=== PATIENT | female | born 2000 | race Caucasian/White ===

== ENCOUNTER 2019-07-08 20:37 | Emergency (ER) | payer MEDICAID, SELFPAY ==
[2019-07-08 20:58] VITALS: BP 130/68; PULSE 74; RESP 14; TEMP 37.2; O2SAT 98; BMI 21.0
[2019-07-08 21:58] LABS: Basophils % 0.3 %; Eosinophils # 0.1 10^3/uL (0.0-0.8); Hematocrit 38.6 % (37.0-47.0); Hemoglobin 12.6 g/dL (11.5-15.3); Lymphocytes % 17.2 %; Mean Corpuscular HGB Conc 32.6 g/dL (30.0-36.0); Mean Corpuscular Hemoglobin 30.6 pg (28.0-34.0); Mean Corpuscular Volume 93.7 fL (81-99); Mean Platelet Volume 11.1 fL (7.4-10.4); Monocytes # 0.7 10^3/uL (0.2-0.9); Monocytes % 5.8 %; Neutrophils # 8.8 10^3/uL (1.8-7.7); Neutrophils % 75.4 %; Nucleated Red Blood Cells % 0 %; Platelet Count 301 10^3/cmm (130-400); Red Blood Count 4.12 10^6/uL (4.1-5.3); White Blood Count 11.6 10^3/uL (4.0-10.0)
[2019-07-08 22:25] LABS: Alanine Aminotransferase 13 U/L (0-33); Albumin Level 4.9 g/dL (3.5-5.2); Alkaline Phosphatase 40 IU/L (35-105); Anion Gap 16.6 (5-19); Aspartate Amino Transferase 18 U/L (0-32); Blood Urea Nitrogen 7 mg/dL (6-20); Calcium 9.1 mg/dL (8.5-10.5); Carbon Dioxide 25 mmol/L (22-29); Chloride 99 mmol/L (98-107); Globulin 2.8 g/dL (1.3-4.6); Glomerular Filtration Rate 126.2 mL/min (90-130); Glucose 101 mg/dL (65-115); Osmolality Calculated 280 mOsm/kg (285-295); Potassium 3.6 mmol/L (3.5-5.1); Sodium 137 mmol/L (136-145); Total Bilirubin 0.3 mg/dL (0.15-1.2); Total Protein 7.7 g/dL (6.6-8.7)
--- NOTE | 2019-07-08 22:26 | USR_ITS ---
PROCEDURE INFORMATION: Exam: US First Trimester, Transabdominal and US , Transvaginal Exam date and time: 07/08/2019 11:40 PM Age: 19 years old Clinical indication: Lmp or gestational age (in weeks): 7 w 1d; Other: Vag bleed; ; Additional info: Bleeding TECHNIQUE: Imaging protocol: Real-time transabdominal obstetrical ultrasound of the maternal pelvis and a first trimester , less than 14 weeks 0 days, with image documentation. Transvaginal imaging was used for better evaluation of the fetus and adnexa. COMPARISON: [place] [id number] 05/31/2018 7:47 AM FINDINGS: Gestation: Single intrauterine gestation. 1.2 x 1.1 x 1.7 cm inferior subchorionic hemorrhage. Heart rate: 150 bpm. Amniotic fluid: Amniotic fluid is normal for gestational age. BIOMETRY: [place]-Rump length: [place]-rump length 1.05 cm Estimated due date: Estimated due date 02/23/2020. MATERNAL: Uterus: Unremarkable. Cervix: Unremarkable. Right adnexa: The right ovary is normal. Left adnexa: The left ovary is normal. Intraperitoneal: No intraperitoneal free fluid. US/US OB <= 14 weeks fetus [id number] IMPRESSION: 1. Single living intrauterine gestation estimated at 7 weeks 1 day. 2. Small subchorionic hemorrhage.
--- NOTE | 2019-07-08 22:27 | W.ED.PREGNAN ---
HPI - General: Chief complaint: Vaginal Bleeding Stated complaint: cramping/bleeding 7 weeks preg Time Seen by Provider: 07/08/19 22:20 History of Present Illness: HPI Narrative: Patient states she is about 7 weeks that she started cramping about 2 hours ago a had just bleeding at that time is on a blood since still has some cramps going on. Patient says she has had 1 miscarriage at 7 weeks. That was about a year ago has had 3+ test and has seen Dr. Brito for this . Denies any other ongoing medical symptoms at this time MD Complaint: vaginal bleeding Onset (ago): hour(s) Pain Consistency: now resolved Severity: mild Quality: Cramping Vaginal bleeding: clots Date of Last Menstrual Period: 04/17/19 Patient : Yes OB History - Current : no complications and other OB History - Previous Pregnancies: miscarriage care: other Associated symptoms: Reports no associated symptoms; Deny abdominal pain, headache(s), nausea or vomiting Review of Systems Const: Denies: fever, chills or body aches Eyes: Denies: change in vision or blurry vision ENMT: Denies: throat pain or nasal congestion Card: Denies: chest pain or shortness of breath on exertion Resp: Denies: shortness of breath, productive cough or non-productive cough GI: Denies: abdominal pain, nausea or vomiting : Reports: vaginal bleeding (Has now stopped does have cramping) Musc: Denies: extremity pain Skin/Breast: Denies: rash Neuro: Denies: headache Psych: Denies: anxiety or depression [place]/Lymph: Denies: easy bruising PFSH ED PFSH: Social History Smoking and tobacco status: never smoked Female Reproductive History: Date of last menstrual period: 04/17/19 Physical Exam Const: COMMON NORMALS: no apparent distress, average body habitus and oriented x3 HENMT: COMMON NORMALS: normocephalic HEAD & SCALP: normal to inspection and normocephalic FACE & SINUS: normal facial exam Eye: COMMON NORMALS: conjunctivae normal GENERAL EYE: normal appearance of both eyes CONJUNCTIVA: Yes conjunctivae normal Neck/C-Spine: COMMON NORMALS: no JVD Chest: COMMONS NORMALS: inspection of chest normal Resp: COMMON NORMALS: normal respiratory effort and clear to auscultation bilaterally AUSCULTATION: clear to auscultation bilaterally Cardio: COMMON NORMALS: no JVD, regular rate and regular rhythm RATE: regular rate RHYTHM: regular rhythm GI: COMMON NORMALS: normal to inspection, nondistended, normoactive bowel sounds Extremity: COMMON NORMALS: normal to inspection and full ROM Neuro: COMMON NORMALS: oriented x3 Course Vital Signs: Vital signs: Vital Signs Temperature 99.0 F 07/08/19 20:58 Pulse Rate 74 07/08/19 20:58 Respiratory Rate 14 07/08/19 20:58 Blood Pressure 130/68 07/08/19 20:58 Pulse Oximetry 98 07/08/19 20:58 MDM - OB/Uterine Contractions Lab Data: Labs: Lab Results 07/08/19 07/08/19 Range/Units 21:29 21:29 WBC 11.6 H (4.0-10.0) 10^3/ uL RBC 4.12 (4.1-5.3) 10^6/u L Hgb 12.6 (11.5-15.3) g/dL Hct 38.6 (37.0-47.0) % MCV 93.7 (81-99) fL MCH 30.6 (28.0-34.0) pg MCHC 32.6 (30.0-36.0) g/dL RDW 12.0 L (12.1-15.1) % Plt Count 301 (130-400) 10^3/c mm MPV 11.1 H (7.4-10.4) fL Neut % (Auto) 75.4 % Lymph % (Auto) 17.2 % Morgan % (Auto) 5.8 % Eos % (Auto) 1.0 % Baso % (Auto) 0.3 % Neut # (Auto) 8.8 H (1.8-7.7) 10^3/u L Lymph # (Auto) 2.0 (0.8-4.8) 10^3/u L Morgan # (Auto) 0.7 (0.2-0.9) 10^3/u L Eos # (Auto) 0.1 (0.0-0.8) 10^3/u L Baso # (Auto) 0.0 (0.0-0.1) 10^3/u L Nucleated RBC % (a uto) 0 % Nucleated RBCs # 0.0 /100WBC Sodium 137 (136-145) mmol/L Potassium 3.6 (3.5-5.1) mmol/L Chloride 99 (98-107) mmol/L Carbon Dioxide 25 (22-29) mmol/L Anion Gap 16.6 (5-19) BUN 7 (6-20) mg/dL Creatinine 0.6 (0.5-0.9) mg/dL GFR Calculation 126.2 (90-130) mL/min Glucose 101 (65-115) mg/dL Calculated Osmolal ity 280 L (285-295) mOsm/k g Calcium 9.1 (8.5-10.5) mg/dL Total Bilirubin 0.3 (0.15-1.2) mg/dL AST 18 (0-32) U/L ALT 13 (0-33) U/L Alkaline Phosphata se 40 (35-105) IU/L Total Protein 7.7 (6.6-8.7) g/dL Albumin 4.9 (3.5-5.2) g/dL Globulin 2.8 (1.3-4.6) g/dL Ser , [place] [address].00 mIU/mL Discharge Plan Discharge Condition: Good Coding Level of Care Code ED [employer]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
[2019-07-08] MEDS: ondansetron 4 MG Tablet 8 MG PO (23:15)
[2019-07-09 00:41] LABS: Add Urine Microscopic? YES; Bilirubin Urine Neg (NEGATIVE); Blood Urine 2+ (Negative); Glucose Urine UA Norm (Normal); Ketones Urine 1+ (Negative); Leukocyte Esterase Urine Negative (Negative); Nitrate Urine Negative (Negative); Protein Urine Neg (Negative); Urine Appearance Clear (CLEAR); Urine Color Yellow (Yellow); Urobilinogen Urine Norm (Negative); pH Urine 6 (5-7)
[2019-07-09 00:42] LABS: RBC Urine 0-4 /hpf (0-2)
[2019-07-09 00:43] LABS: Add Urine Culture? No; Squamous Epithelial Cell Urine 0-4 (0-5)
[2019-07-09 01:10] VITALS: BP 95/54; PULSE 76; RESP 16; O2SAT 98
== END 2019-07-09 01:11 | disposition home or self-care (01) ==
PROVIDERS: Emergency Provider Nurse Practitioner Family; PCP Family Medicine
DX: O26.891 Other specified pregnancy related conditions, first trimester (principal); N93.9 Abnormal uterine and vaginal bleeding, unspecified; Z3A.01 Less than 8 weeks gestation of pregnancy
CPT/HCPCS: 12345; 36415; 76801; 80053; 81001; 84702; 85025; 86900; 99282; 99283; Q0162

== ENCOUNTER 2019-09-29 11:43 | Outpatient (CLI) | payer MEDICAID, SELFPAY ==
[2019-09-29] VITALS (27 sets, daily range): BP systolic 0–109; BP diastolic 0–60; PULSE 59–82; RESP 16–18; TEMP 36.9–37.1; BMI 23.0
[2019-09-29] MEDS: fentaNYL 50 mcg/mL INJ 2mL IV ×5 (12:26→17:48)
[2019-09-29] MEDS: dextrose 5%-lactated ringers 1,000 ML 125 ML IV (12:26)
[2019-09-29 12:57] LABS: Basophils % 0.2 %; Eosinophils % 0.3 %; Hematocrit 37.1 % (37.0-47.0); Hemoglobin 12.1 g/dL (11.5-15.3); Lymphocytes # 1.2 10^3/uL (0.8-4.8); Mean Corpuscular HGB Conc 32.6 g/dL (30.0-36.0); Mean Corpuscular Hemoglobin 30.3 pg (28.0-34.0); Mean Corpuscular Volume 92.8 fL (81-99); Mean Platelet Volume 10.7 fL (7.4-10.4); Monocytes # 0.6 10^3/uL (0.2-0.9); Neutrophils # 12.51 10^3/uL (1.8-7.7); Neutrophils % 87.2 %; Nucleated Red Blood Cells % 0 %; Platelet Count 259 10^3/cmm (130-400); Red Cell Distribution Width 12.1 % (12.1-15.1); White Blood Count 14.4 10^3/uL (4.0-10.0)
[2019-09-29] MEDS: oxytocin 30 UNIT/500 ML BAG IV (16:00)
[2019-09-29] MEDS: ondansetron 2 mg/ML SDV 2 mL 4 MG IVP (17:26)
--- NOTE | 2019-09-29 18:40 | P.SS_ITS ---
Short Stay Summary Providers Date of Admit/Discharge: 10/06/19 Attending Provider: Dae Cook MD Primary Care Provider: Arleen Brito MD Chief Complaint: labor HPI History of Present Illness Nita Rodriguez is a 19 year old 2 para 0-0-1-0 female at 19 weeks gestational age who presented to my office today for a routine anatomic survey. During the survey, the registered diet technician noted that the amniotic fluid was extending into the vaginal area, and that the cervix was dilated. She notified me about this immediately, and when I checked her I found that the amniotic fluid was bulging down to a +2 station, and I was unable to reach around the amniotic sac adequately to feel if the cervix was completely dilated. At that point I notified the patient that she did not have a viable , and that she need to be admitted to the hospital for an imminent delivery of the baby. She returned home to let her know, they came to the hospital for definitive care. Review of Systems General: Reports: 10 or more systems reviewed and unremarkable except in HPI and below Const: Denies: fever(s) Card: Denies: chest pain or irregular heart rhythm Resp: Denies: dyspnea : Reports: vaginal bleeding Home Meds/Allergies Home Medications and Allergies Home Medications Medication Instructions Recorded Confirmed Type PNV cmb#95-ferrous fumarate-FA 1 tab PO DAILY 09/29/19 09/29/19 History [] Allergies Allergy/AdvReac Type Severity Reaction Status Date / Time Penicillins Allergy Unknown Verified 09/29/19 15:20 PFSH Acute PFSH: Social History Smoking and tobacco status: never smoked Female Reproductive History: Date of last menstrual period: 04/17/19 : 2 Other female reproductive history: The patient's previous was a blighted ovum. She had had some bleeding during this as well as subchorionic hemorrhage. Vitals/I&O/Wt Last Vital Signs Temp 98.7 F 09/29/19 12:01 Pulse 62 09/29/19 18:12 Resp 16 09/29/19 17:48 BP 108/52 09/29/19 18:12 07/30/20 07/30/20 07/30/20 06:59 14:59 22:59 Intake Total 491.00 / 491.00 Balance 491.00 / 491.00 Weight last 48 hrs Weight 118 lb Physical Exam Const: COMMON NORMALS: patient oriented x3 and alert HENMT: COMMON NORMALS: moist oral mucous membranes HEAD & SCALP: normal to inspection Chest: COMMONS NORMALS: normal inspection of the chest Resp: COMMON NORMALS: clear to auscultation bilaterally AUSCULTATION: clear to auscultation bilaterally Cardio: COMMON NORMALS: regular rate and regular rhythm RATE: regular rate RHYTHM: regular rhythm GI: INSPECTION: Yes normal to inspection and Yes other (Gravid) : MANUAL OB EXAM: other (The patient was noted to have a bulging amniotic sac that was to a +2 to +3 station with parts felt within the sac.) Extremity: COMMON NORMALS: normal to inspection GENERAL: Yes edema (Trace) Neuro: COMMON NORMALS: patient oriented x3, moves all extremities and no sensory deficits noted SENSORIUM/ORIENTATION: Yes alert Psych: COMMON NORMALS: mental status grossly normal Skin: COMMON NORMALS: no rashes or lesions noted GENERAL SKIN EXAM: no rashes or lesions noted Hospital Course Hospital Course: The patient presented to the hospital with her to induce delivery of her . She is placed on tocometry. She is placed on high-dose Pitocin and was increased to 19. I performed an amniotomy. Shortly thereafter she delivered an intact normal-appearing 19-week without heart tones. The placenta was delivered without difficulty. The patient had about 50 mls of blood loss. There was no perineal damage noted. She and her held the baby for a while after the delivery of the infant. After delivery the and the placenta, the patient had mild to moderate bleeding. It resolved fairly quickly. She and her elected to go home a few hours after delivery. Diagnoses at Discharge Discharge Diagnosis (1) demise, less than 22 weeks: Status: Acute (2) Incompetent cervix during second trimester, antepartum: Status: Acute Discharge Plan Discharge Patient Disposition: Home Prescriptions: New ibuprofen 800 mg tablet 800 mg PO Q8H Qty: 30 RF: 0 No Action 28 mg iron- 800 mcg Tablet 1 tab PO DAILY RF: 0 Discharge Orders: Discharge Order (Routine); Ordered 09/29/19 Ordered By: Dae Cook Referrals: Dae Cook MD [Physician] - 4-7 days Diet: Usual diet Activity: Limit activity as instructed Activity Restrictions/Additional Instructions: Please contact [facility] ([phone]) to schedule a follow up first thing in the AM on 09/30/2019. Discharge Date/Time: 09/29/19 21:58 Attestations Medical Necessity Statement*: The patient presented to the hospital for induction and delivery of a 19-week male infant. 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
--- NOTE | 2019-09-29 21:13 | PC.NURSE ---
This nurse contacted [facility] per patients request at 2029. [facility] [employer]
[2019-09-29] MEDS: ondansetron 4 MG Tablet PO (21:48)
--- NOTE | 2019-09-29 22:57 | PC.NURSE ---
Baby to home staff at 0063. AR RN
== END 2019-09-29 21:58 | disposition home or self-care (01) ==
LOC: OPOB 11:49 → OBGYN 18:51
PROVIDERS: PCP Family Medicine; Visit Provider Family Medicine
DX: O34.32 Maternal care for cervical incompetence, second trimester (principal); O36.4XX0 Maternal care for intrauterine death, not applicable or unspecified; Z3A.22 22 weeks gestation of pregnancy
CPT/HCPCS: 12345; 36415; 59409; 85025; 96374; 96375; J2405; J3010; Q0162

== ENCOUNTER 2023-05-01 17:25 | Emergency (ER) | payer BC, MEDICAID, SELFPAY ==
[2023-05-01 17:35] VITALS: BP 148/96; PULSE 95; RESP 17; O2SAT 100; BMI 20.1
--- NOTE | 2023-05-01 17:35 | USR_ITS ---
PROCEDURE INFORMATION: Exam: US First Trimester, Transabdominal and US Duplex Artery or Vein, Ovaries, Limited Exam date and time: 05/01/2023 5:22 PM Age: 23 years old Clinical indication: Lmp or gestational age (in weeks): 8w0d; Antepartum complications; Bleeding; ; Prior surgery; Surgery date: 6+ months; Surgery type: HX of d&c; Additional info: Vaginal bleeding TECHNIQUE: Imaging protocol: Real-time transabdominal obstetrical ultrasound of the maternal pelvis and a first trimester , less than 14 weeks 0 days, with image documentation. Real-time duplex ultrasound scan of the arterial or venous flow of the ovaries with B-mode, color Doppler flow and spectral waveform analysis, limited Duplex. Duplex exam was performed to evaluate for torsion and other vascular conditions. COMPARISON: US OB limited [id number] 09/29/2019 10:29 AM FINDINGS: Gestation: Single live intrauterine with crown-rump length of approximately 1.59 cm with estimated gestational age of 8 weeks 0 days based on ultrasound. Yolk sac identified. Embryonic/ heart rate: 171 bpm Extra-embryonic membranes/Placenta: Unremarkable. No subchorionic bleed. BIOMETRY: Gestational age (AUA): 8 weeks 0 days MATERNAL: Uterus: Unremarkable. Cervix: Cervical length measures 4.5 cm. Right ovary/adnexa: Normal flow. No torsion. Normal follicles. Left ovary/adnexa: Normal flow. No torsion. Simple cysts measuring up to 3.5 cm, likely physiologic. Intraperitoneal space: Trace pelvic free fluid. US/US OB <=14 wk fetus w transvag IMPRESSION: Single live intrauterine with estimated gestational age of 8 weeks and 0 days.
--- NOTE | 2023-05-01 17:42 | ED_ITS ---
Documented by User: TOY Cook 05/01/23 20:22 HPI - 2 General: Chief complaint: Vaginal Bleeding Stated complaint: Vanginal Bleeding, 8 weeks preg Time Seen by Provider: 05/01/23 17:34 Source: patient Mode of arrival: ambulatory Limitations: no limitations History of Present Illness: Patient is a 23-year-old female G4, P0 who presents to the emergency department complaining of vaginal bleeding onset 20 minutes ago. Patient states this is her fourth , stating she has miscarriage the prior 3. She says she had a confirmatory intrauterine gestation via ultrasound last week, and is approximately 9 weeks . She denies any associated symptoms, and states that she just happened to notice a significant amount of bright red blood appear prior to arrival. She denies any lightheadedness, chest pain, dizziness, nausea vomiting, abdominal pain, or any other symptoms. MD Complaint: vaginal bleeding Onset (ago): minute(s) (20) Vaginal bleeding: heavy Patient : Yes Number of Weeks : 9 OB History - Previous Pregnancies: miscarriage (3) care: followed by OB and previous ultrasound confirms IUP Associated symptoms: Reports no associated symptoms; Deny abdominal pain, dysuria, headache(s), nausea, vaginal discharge or vomiting Related Data: : 4 Para: 0 Total number of abortions (spontaneous and elective): 3 Review of Systems 2 General: Reports: 10 or more systems reviewed and unremarkable except in HPI and below Const: Denies: fever(s), chills or fatigue Eyes: Denies: change in vision ENMT: Denies: throat pain, ear or mastoid pain or nasal discharge Card: Denies: chest pain, palpitations, swelling of feet/ankles or lightheadedness Resp: Denies: dyspnea, productive cough or wheezing GI: Denies: abdominal pain, nausea, vomiting, diarrhea or constipation : Reports: vaginal bleeding and other (); Denies: flank pain, difficulty voiding, dysuria, urinary frequency, vaginal discharge, dysmenorrhea or pelvic pain Musc: Denies: neck pain, back pain or joint pain Skin/Breast: Denies: rash Neuro: Denies: headache(s), numbness in extremities, weakness in extremities or dizziness PFSH ED 2 PFSH: Social History Smoking and tobacco/nicotine status: never used tobacco/nicotine Female Reproductive History: : 4 Physical Exam 2 Const: COMMON NORMALS: no acute distress, patient oriented x3 and no limitations GENERAL APPEARANCE: cooperative, comfortable and well developed ORIENTATION/CONSCIOUSNESS: Yes awake, Yes oriented to person, Yes oriented to place and Yes oriented to time HENMT: COMMON NORMALS: normocephalic, atraumatic and hearing grossly normal bilaterally HEAD & SCALP: normocephalic and atraumatic Eye: COMMON NORMALS: Equal, round and reactive pupils present, EOMs intact bilaterally and conjunctivae normal CONJUNCTIVA: Yes conjunctivae normal P UPIL: Yes Equal, round and reactive pupils present Neck/C-Spine: COMMON NORMALS: full ROM, supple and no JVD Resp: COMMON NORMALS: normal respiratory effort, No retractions, No use of accessory muscles and clear to auscultation bilaterally AUSCULTATION: clear to auscultation bilaterally Cardio: COMMON NORMALS: no JVD, regular rate, regular rhythm, No clicks present (Cardio), No murmurs present (Cardio) and No rub (Cardio) RATE: r egular rate RHYTHM: regular rhythm GI: COMMON NORMALS: Normal to inspection, nondistended, normoactive bowel sounds present, Soft to palpation and non-tender INSPECTION: Yes other (fundus not appreciable due to gestational age) AUSCULTATION: Yes normoactive bowel sounds PALPATION: Yes Soft to palpation : OTHER: Pelvic exam performed with trademark affixer present. Mild amount of blood present in the vaginal vault with no signs of tissue or particles of conception. Cervical os closed. No abnormal discharge noted. External exam normal. Extremity: COMMON NORMALS: normal to inspection, full ROM and capillary refill normal Neuro: COMMON NORMALS: patient oriented x3, moves all extremities, no focal motor deficits and no sensory deficits noted SENSORIUM/ORIENTATION: Yes oriented to person, Yes oriented to place and Yes oriented to time Psych: COMMON NORMALS: mental status grossly normal and Normal thought process present THOUGHT PROCESS: Normal thought process present Skin: COMMON NORMALS: no rashes or lesions noted GENERAL SKIN EXAM: no rashes or lesions noted Procedures Perimortem Number of Weeks : 9 Course 2 Vital Signs: Vital signs: Vital Signs Pulse Rate 86 05/01/23 19:06 Respiratory Rate 16 05/01/23 19:47 Blood Pressure 101/70 05/01/23 19:47 Pulse Oximetry 98 05/01/23 19:06 Oxygen Delivery Me thod Room Air 05/01/23 19:06 MDM - OB/Uterine Contractions Medical Decision Making This patient was seen and evaluated in the emergency department today for acute onset of vaginal bleeding. Patient states she is approximately 9 weeks and has a history of 3 prior miscarriages. She denied any other accompanying symptoms. Vitals on arrival were normal. Initial examination was overall. Patient was began on a liter of fluids and labs and ultrasound were ordered. Overall, labs are unremarkable and beta-hCG correlated with patient's gestational age. Transvaginal/OB ultrasound confirmed intrauterine gestation with heart tones in the 170s, as well as presence of yolk sac and approximate gestational age of 8 weeks. Due to these findings, I performed a pelvic exam to evaluate integrity of the cervical os. Pelvic examination revealed a closed cervical os without presence of tissue and a mild amount of blood in the vault. Because of these findings that I believe are consistent with a threatened miscarriage, I feel it is safe to discharge the patient home and have her follow-up with her OB as soon as possible to discuss ER visit and any further necessary workup. The patient agrees with this plan and reasons to return are discussed, including any lightheadedness or dizziness, severe abdominal pain, increased vaginal bleeding, or other concerns she may have. Patient discharged home. Lab Data 05/01/23 17:51 Radiology Impressions Obstetrics Ultrasound 05/01/23 17:35 IMPRESSION: Single live intrauterine with estimated gestational age of 8 weeks and 0 days. Laboratory Results WBC 12.26 10^3/uL (3.29-11.43) H 05/01/23 17:51 RBC 4.05 10^6/uL (3.85-5.65) 05/01/23 17:51 Hgb 12.20 g/dL (11.27-16.99) 05/01/23 17:51 Hct 37.3 % (36-47) 05/01/23 17:51 MCV 92.1 fl (85-98) 05/01/23 17:51 MCH 30.1 pg (27-33) 05/01/23 17:51 MCHC 32.7 g/dL (30-55) 05/01/23 17:51 RDW 12.1 % (12.1-15.1) 05/01/23 17:51 Plt Count 298 10^3/cmm (157-399) 05/01/23 17:51 MPV 9.9 fL (7.4-10.4) 05/01/23 17:51 Neut % (Auto) 80.7 % 05/01/23 17:51 Lymph % (Auto) 13.1 % 05/01/23 17:51 [place] % (Auto) 5.1 % 05/01/23 17:51 Eos % (Auto) 0.4 % 05/01/23 17:51 Baso % (Auto) 0.4 % 05/01/23 17:51 Neut # (Auto) 9.90 10^3/uL (1.8-7.7) H 05/01/23 17:51 Lymph # (Auto) 1.6 10^3/uL (0.8-4.8) 05/01/23 17:51 [place] # (Auto) 0.6 10^3/uL (0.2-0.9) 05/01/23 17:51 Eos # (Auto) 0.1 10^3/uL (0.0-0.8) 05/01/23 17:51 Baso # (Auto) 0.1 10^3/uL (0.0-0.1) 05/01/23 17:51 Nucleated RBC % (auto) 0 % 05/01/23 17:51 Nucleated RBCs # 0.0 /100WBC 05/01/23 17:51 Ser , Semi-Qnt 013159.00 mIU/mL 05/01/23 17:51 All radiology interpretation(s) finalized by discharge Discharge Plan Discharge Patient Disposition: Home Clinical Impression: Threatened Condition: Stable Prescriptions: No Action 28 mg iron- 800 mcg Tablet 1 tab PO DAILY Discharge Orders: Discharge ED (Routine); Ordered 05/01/23 Ordered By: Be Rodriguez Referrals: Dae Cook MD [Primary Care Provider] - Discharge Diet: Usual diet Discharge Activity: Increase activity as tolerated Patient Instructions: Threatened Miscarriage (ED) Activity Restrictions/Additional Instructions: Please follow-up with your OB to discuss ER visit and lab/tests. If you develop any lightheadedness, increased abdominal pain, significant bleeding, or any other concerning symptoms please return. Coding Level of Care Code ED Cube Cutter for Chg Fwd Documented by User: David Courtney DO 05/02/23 06:37 HPI - 2 General: Chief complaint: Vaginal Bleeding Stated complaint: Vanginal Bleeding, 8 weeks preg Time Seen by Provider: 05/01/23 17:34 PFS ED 2 PFSH: Social History Smoking and tobacco/nicotine status: never used tobacco/nicotine Course 2 Vital Signs: Vital signs: Vital Signs Pulse Rate 86 05/01/23 19:06 Respiratory Rate 16 05/01/23 19:47 Blood Pressure 101/70 05/01/23 19:47 Pulse Oximetry 98 05/01/23 19:06 Oxygen Delivery Me thod Room Air 05/01/23 19:06 MDM - OB/Uterine Contractions Medical Decision Making This patient was seen and evaluated in the emergency department today for acute onset of vaginal bleeding. Patient states she is approximately 9 weeks and has a history of 3 prior miscarriages. She denied any other accompanying symptoms. Vitals on arrival were normal. Initial examination was overall. Patient was began on a liter of fluids and labs and ultrasound were ordered. Overall, labs are unremarkable and beta-hCG correlated with patient's gestational age. Transvaginal/OB ultrasound confirmed intrauterine gestation with heart tones in the 170s, as well as presence of yolk sac and approximate gestational age of 8 weeks. Due to these findings, I performed a pelvic exam to evaluate integrity of the cervical os. Pelvic examination revealed a closed cervical os without presence of tissue and a mild amount of blood in the vault. Because of these findings that I believe are consistent with a threatened miscarriage, I feel it is safe to discharge the patient home and have her follow-up with her OB as soon as possible to discuss ER visit and any further necessary workup. The patient agrees with this plan and reasons to return are discussed, including any lightheadedness or dizziness, severe abdominal pain, increased vaginal bleeding, or other concerns she may have. Patient discharged home. Chart reviewed and patient discussed with midlevel. Agree with assessment and plan. Lab Data 05/01/23 17:51 Radiology Impressions Obstetrics Ultrasound 05/01/23 17:35 IMPRESSION: Single live intrauterine with estimated gestational age of 8 weeks and 0 days. Laboratory Results WBC 12.26 10^3/uL (3.29-11.43) H 05/01/23 17:51 RBC 4.05 10^6/uL (3.85-5.65) 05/01/23 17:51 Hgb 12.20 g/dL (11.27-16.99) 05/01/23 17:51 Hct 37.3 % (36-47) 05/01/23 17:51 MCV 92.1 fl (85-98) 05/01/23 17:51 MCH 30.1 pg (27-33) 05/01/23 17:51 MCHC 32.7 g/dL (30-55) 05/01/23 17:51 RDW 12.1 % (12.1-15.1) 05/01/23 17:51 Plt Count 298 10^3/cmm (157-399) 05/01/23 17:51 MPV 9.9 fL (7.4-10.4) 05/01/23 17:51 Neut % (Auto) 80.7 % 05/01/23 17:51 Lymph % (Auto) 13.1 % 05/01/23 17:51 [place] % (Auto) 5.1 % 05/01/23 17:51 Eos % (Auto) 0.4 % 05/01/23 17:51 Baso % (Auto) 0.4 % 05/01/23 17:51 Neut # (Auto) 9.90 10^3/uL (1.8-7.7) H 05/01/23 17:51 Lymph # (Auto) 1.6 10^3/uL (0.8-4.8) 05/01/23 17:51 [place] # (Auto) 0.6 10^3/uL (0.2-0.9) 05/01/23 17:51 Eos # (Auto) 0.1 10^3/uL (0.0-0.8) 05/01/23 17:51 Baso # (Auto) 0.1 10^3/uL (0.0-0.1) 05/01/23 17:51 Nucleated RBC % (auto) 0 % 05/01/23 17:51 Nucleated RBCs # 0.0 /100WBC 05/01/23 17:51 Ser , Semi-Qnt [id number] mIU/mL 05/01/23 17:51 Discharge Plan Discharge Patient Disposition: Home Clinical Impression: Threatened Condition: Stable Prescriptions: No Action 28 mg iron- 800 mcg Tablet 1 tab PO DAILY Discharge Orders: Discharge ED (Routine); Ordered 05/01/23 Ordered By: Be Rodriguez Referrals: Dae Cook MD [Primary Care Provider] - Discharge Diet: Usual diet Discharge Activity: Increase activity as tolerated Patient Instructions: Threatened Miscarriage (ED) Activity Restrictions/Additional Instructions: Please follow-up with your OB to discuss ER visit and lab/tests. If you develop any lightheadedness, increased abdominal pain, significant bleeding, or any other concerning symptoms please return. Coding Level of Care Code ED Cube Cutter for Ayad Emanuel
[2023-05-01 17:55] LABS: Basophils # 0.1 10^3/uL (0.0-0.1); Basophils % 0.4 %; Eosinophils # 0.1 10^3/uL (0.0-0.8); Eosinophils % 0.4 %; Hematocrit 37.3 % (36-47); Lymphocytes # 1.6 10^3/uL (0.8-4.8); Lymphocytes % 13.1 %; Mean Corpuscular HGB Conc 32.7 g/dL (30-55); Mean Corpuscular Hemoglobin 30.1 pg (27-33); Mean Corpuscular Volume 92.1 fl (85-98); Mean Platelet Volume 9.9 fL (7.4-10.4); Monocytes # 0.6 10^3/uL (0.2-0.9); Monocytes % 5.1 %; Neutrophils % 80.7 %; Nucleated Red Blood Cells % 0 %; Platelet Count 298 10^3/cmm (157-399); Red Blood Count 4.05 10^6/uL (3.85-5.65); Red Cell Distribution Width 12.1 % (12.1-15.1); White Blood Count 12.26 10^3/uL (3.29-11.43)
[2023-05-01] MEDS: sodium chloride 0.9% 1,000 ML 999 ML IV (18:20)
[2023-05-01 19:06] VITALS: BP 108/50; PULSE 86; RESP 16; O2SAT 98
[2023-05-01 19:47] VITALS: BP 101/70; RESP 16
== END 2023-05-01 20:04 | disposition home or self-care (01) ==
PROVIDERS: Emergency Provider Physician Assistant; PCP Family Medicine
DX: O20.0 Threatened abortion (principal); Z3A.08 8 weeks gestation of pregnancy
CPT/HCPCS: 36415; 76801; 76817; 84702; 85025; 99284; J7030

== ENCOUNTER 2023-05-28 13:38 | Emergency (ER) | payer BC, MEDICAID, SELFPAY ==
[2023-05-28 13:42] VITALS: BP 137/80; PULSE 94; RESP 16; TEMP 36.9; O2SAT 98
[2023-05-28 14:53] LABS: Add Urine Microscopic? NO; Charge for UA Resulting for Rev
[2023-05-28 14:56] LABS: Basophils % 0.3 %; Eosinophils # 0.1 10^3/uL (0.0-0.8); Eosinophils % 0.6 %; Hematocrit 37.6 % (36-47); Lymphocytes # 1.3 10^3/uL (0.8-4.8); Lymphocytes % 11.5 %; Mean Corpuscular HGB Conc 33.2 g/dL (30-55); Mean Corpuscular Hemoglobin 30.5 pg (27-33); Mean Corpuscular Volume 91.7 fl (85-98); Monocytes # 0.5 10^3/uL (0.2-0.9); Monocytes % 4.8 %; Neutrophils # 9.01 10^3/uL (1.8-7.7); Neutrophils % 82.4 %; Nucleated Red Blood Cells % 0 %; Platelet Count 263 10^3/cmm (157-399); Red Cell Distribution Width 12.4 % (12.1-15.1); White Blood Count 10.94 10^3/uL (3.29-11.43)
--- NOTE | 2023-05-28 14:58 | USR_ITS ---
PROCEDURE INFORMATION: Exam: US First Trimester, Transabdominal and US , Transvaginal Exam date and time: 05/28/2023 3:15 PM Age: 23 years old Clinical indication: complicated by abdominal or pelvic pain; Left lower quadrant; First trimester (<14 weeks 0 days); Gestational age or lmp: 12w3d; ; Additional info: Abd pain LABS AND CLINICAL REPORTS: Gestational age (Established): 12 w 3 d Estimated due date (Established): 12/07/2023 TECHNIQUE: Imaging protocol: Real-time transabdominal obstetrical ultrasound of the maternal pelvis and a first trimester , less than 14 weeks 0 days, with image documentation. Transvaginal imaging was used for better evaluation of the fetus, adnexa, and/or cervix. COMPARISON: US OB <= 14 weeks fetus [id number] 05/25/2023 11:49 AM FINDINGS: Gestation: Intrauterine gestation. Yolk sac is not visible. Embryonic/ heart rate: 141 bpm Extra-embryonic membranes/Placenta: Anterior placenta. Small subchorionic bleed1.8 cm by 1.9 cm x 1.4 cm Amniotic fluid: Amniotic fluid and extra-amniotic fluid is normal for gestational age. BIOMETRY: Gestational age (AUA): 12 weeks 3 days AV 12/07/2023 Mean sac diameter: 6.89 cm. EGA (MSD) is 13 w 3 d MATERNAL: Uterus: Unremarkable. 8.3 cm x 9.5 cm x 11.4 cm Cervix: Unremarkable. Closed Right ovary/adnexa: Unremarkable ovary. 2.4 cm x 1.2 cm x 2.8 cm Left ovary/adnexa: Left ovary cyst 2 cm x 2.7 cm x 1.7 cm Left ovary measures 3.2 cm x 2.7 cm x 3.3 cm Intraperitoneal space: No intraperitoneal free fluid. US/US OB <= 14 weeks fetus [id number] IMPRESSION: 1. Single living intrauterine gestation. 2. Gestational age 12 weeks 3 days AV 12/07/2023. 3. Benign cyst left ovary. 4. Anterior placenta. 5. Normal amniotic fluid volume 6. Small subchorionic hemorrhage
[2023-05-28 15:07] LABS: Urine Appearance Clear (CLEAR); Urine Color Light yellow (Yellow); pH Urine 8 (5-7)
[2023-05-28 15:08] LABS: Bilirubin Urine Neg (Negative); Blood Urine Neg (Negative); Glucose Urine UA Norm (Normal); Ketones Urine Negative (Negative); Leukocyte Esterase Urine Negative (Negative); Nitrate Urine Negative (Negative); Protein Urine Neg (Negative); Sulfosalicylic Acid Urine Negative (Negative); Urobilinogen Urine Norm (Negative)
[2023-05-28 15:17] LABS: Alanine Aminotransferase 12 U/L (0-33); Albumin Level 4.3 g/dL (3.5-5.2); Alkaline Phosphatase 39 U/L (35-105); Anion Gap 14.1 (5-19); Aspartate Amino Transferase 18 U/L (0-32); Blood Urea Nitrogen 6 mg/dL (6-20); Calcium 9.2 mg/dL (8.5-10.5); Carbon Dioxide 25 mmol/L (22-29); Chloride 101 mmol/L (98-107); Creatinine Clr Calc Pharmacy 172.8451; Globulin 2.9 g/dL (1.3-4.6); Glomerular Filtration Rate 194.5 mL/min (90-130); Glucose 96 mg/dL (65-115); Lipase 31 U/L (13-60); Osmolality Calculated 279 mOsm/kg (285-295); Potassium 4.1 mmol/L (3.5-5.1); Sodium 136 mmol/L (136-145); Total Bilirubin 0.3 mg/dL (0.15-1.2); Total Protein 7.2 g/dL (6.6-8.7)
--- NOTE | 2023-05-28 15:20 | ED_ITS ---
HPI - Abdominal Pain 2 General: Chief Complaint: Abdominal Pain Stated Complaint: abd pain, 12 weeks Time Seen by Provider: 05/28/23 14:31 Related Data: Date of Last Menstrual Period: 03/02/23 [facility] ED 2 PFSH: Social History Smoking and tobacco/nicotine status: never used tobacco/nicotine Female Reproductive History: Date of last menstrual period: 03/02/23 Course 2 Vital Signs: Vital signs: Vital Signs Temperature 98.5 F 05/28/23 13:42 Pulse Rate 94 05/28/23 13:42 Respiratory Rate 16 05/28/23 13:42 Blood Pressure 137/80 05/28/23 13:42 Pulse Oximetry 98 05/28/23 13:42 Oxygen Delivery Me thod Room Air 05/28/23 13:42 MDM - Abdominal Pain Lab Data 05/28/23 14:47 05/28/23 14:47 Labs/Radiology: Laboratory Results WBC 10.94 10^3/uL (3.29-11.43) 05/28/23 14:47 RBC 4.10 10^6/uL (3.85-5.65) 05/28/23 14:47 Hgb 12.50 g/dL (11.27-16.99) 05/28/23 14:47 Hct 37.6 % (36-47) 05/28/23 14:47 MCV 91.7 fl (85-98) 05/28/23 14:47 MCH 30.5 pg (27-33) 05/28/23 14:47 MCHC 33.2 g/dL (30-55) 05/28/23 14:47 RDW 12.4 % (12.1-15.1) 05/28/23 14:47 Plt Count 263 10^3/cmm (157-399) 05/28/23 14:47 MPV 10.0 fL (7.4-10.4) 05/28/23 14:47 Neut % (Auto) 82.4 % 05/28/23 14:47 Lymph % (Auto) 11.5 % 05/28/23 14:47 [place] % (Auto) 4.8 % 05/28/23 14:47 Eos % (Auto) 0.6 % 05/28/23 14:47 Baso % (Auto) 0.3 % 05/28/23 14:47 Neut # (Auto) 9.01 10^3/uL (1.8-7.7) H 05/28/23 14:47 Lymph # (Auto) 1.3 10^3/uL (0.8-4.8) 05/28/23 14:47 [place] # (Auto) 0.5 10^3/uL (0.2-0.9) 05/28/23 14:47 Eos # (Auto) 0.1 10^3/uL (0.0-0.8) 05/28/23 14:47 Baso # (Auto) 0.0 10^3/uL (0.0-0.1) 05/28/23 14:47 Nucleated RBC % (auto) 0 % 05/28/23 14:47 Nucleated RBCs # 0.0 /100WBC 05/28/23 14:47 Sodium 136 mmol/L (136-145) 05/28/23 14:47 Potassium 4.1 mmol/L (3.5-5.1) 05/28/23 14:47 Chloride 101 mmol/L (98-107) 05/28/23 14:47 Carbon Dioxide 25 mmol/L (22-29) 05/28/23 14:47 Anion Gap 14.1 (5-19) 05/28/23 14:47 BUN 6 mg/dL (6-20) 05/28/23 14:47 Glucose 96 mg/dL (65-115) 05/28/23 14:47 Calcium 9.2 mg/dL (8.5-10.5) 05/28/23 14:47 Total Bilirubin 0.3 mg/dL (0.15-1.2) 05/28/23 14:47 AST 18 U/L (0-32) 05/28/23 14:47 ALT 12 U/L (0-33) 05/28/23 14:47 Alkaline Phosphatase 39 U/L (35-105) 05/28/23 14:47 Total Protein 7.2 g/dL (6.6-8.7) 05/28/23 14:47 Albumin 4.3 g/dL (3.5-5.2) 05/28/23 14:47 Globulin 2.9 g/dL (1.3-4.6) 05/28/23 14:47 Lipase 31 U/L (13-60) 05/28/23 14:47 Urine Color Light yellow (Yellow) 05/28/23 14:40 Urine Appearance Clear (CLEAR) 05/28/23 14:40 Urine pH 8 (5-7) H 05/28/23 14:40 Ur Specific [place] 1.010 (1.005-1.030) 05/28/23 14:40 Urine Protein Neg (Negative) 05/28/23 14:40 Urine Glucose (UA) Norm (Normal) 05/28/23 14:40 Urine Ketones Negative (Negative) 05/28/23 14:40 Urine Blood Neg (Negative) 05/28/23 14:40 Urine Nitrate Negative (Negative) 05/28/23 14:40 Urine Bilirubin Neg (Negative) 05/28/23 14:40 Prot Sulfosalicylic Acd Negative (Negative) 05/28/23 14:40 Urine Urobilinogen Norm mg/dL (Negative) 05/28/23 14:40 Ur Leukocyte Esterase Negative (Negative) 05/28/23 14:40 Discharge Plan Discharge Condition: Stable Prescriptions: No Action 28 mg iron- 800 mcg Tablet 1 tab PO DAILY Referrals: Dae Cook MD [Primary Care Provider] - Coding Level of Care Code ED Rand 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
--- NOTE | 2023-05-28 15:32 | W.ED.ABDPA2 ---
HPI - Abdominal Pain General: Chief Complaint: Abdominal Pain Stated Complaint: abd pain, 12 weeks Time Seen by Provider: 05/28/23 14:31 History of Present Illness: 23-year-old female comes in today for complaints of left lower quadrant abdominal pain. Patient reports that she started having some left lower abdomen pain this morning. Patient reports the pain is just achy and dull. Patient is in her 12th week of . Patient had an ultrasound done 3 days ago that showed abnormality on the placenta that concerned her. Patient appears nontoxic. Patient reports no bleeding or vaginal discharge. 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 Associated Symptoms: Denies constipation, diarrhea, nausea and vomiting Related Data: Date of Last Menstrual Period: 03/02/23 Review of Systems General: Reports: 10 or more systems reviewed and unremarkable except in HPI and below GI: Reports: abdominal pain; Denies: nausea, vomiting, diarrhea or constipation : Denies: difficulty voiding, vaginal bleeding or vaginal discharge [facility] ED PFSH: Social History Smoking and tobacco/nicotine status: never used tobacco/nicotine Female Reproductive History: Date of last menstrual period: 03/02/23 Physical Exam Const: COMMON NORMALS: alert HENMT: COMMON NORMALS: normocephalic HEAD & SCALP: normocephalic Neck/C-Spine: COMMON NORMALS: full ROM Resp: COMMON NORMALS: normal respiratory effort Cardio: COMMON NORMALS: regular rate RATE: regular rate GI: COMMON NORMALS: Soft to palpation and non-tender PALPATION: Yes Soft to palpation : COMMON NORMALS: Yes no CVA tenderness BLADDER/KIDNEY EXAM: Yes no CVA tenderness Back/Pelvis: COMMON NORMALS: no CVA tenderness and thoracic and lumbar spine normal to inspection Extremity: COMMON NORMALS: no pedal edema Neuro: SENSORIUM/ORIENTATION: Yes alert Skin: COMMON NORMALS: turgor normal GENERAL SKIN EXAM: turgor normal Course Vital Signs: Vital signs: Vital Signs Temperature 98.5 F 05/28/23 13:42 Pulse Rate 57 L 05/28/23 15:56 Respiratory Rate 16 05/28/23 13:42 Blood Pressure 119/59 05/28/23 15:56 Pulse Oximetry 100 05/28/23 15:56 Oxygen Delivery Me thod Room Air 05/28/23 15:56 MDM - Abdominal Pain Medical Decision Making 23-year-old female comes in today for evaluation of left lower abdominal pain. On exam patient abdomen soft with some mild tenderness. Skin is warm and dry. Vital signs are normal. Patient appears nontoxic and in no pain. Patient moves all EXTR well. Patient expressed concern of abnormalities seen on ultrasound 3 days ago. Differential diagnosis includes subchorionic hemorrhage, threatened miscarriage, ovarian cyst, constipation, gastroenteritis, diverticulitis. Reviewed exam with patient with recommendations for treatment and follow-up. Ultrasound was unremarkable. hCG was 166. CBC, CMP and urinalysis are unremarkable or within normal limits. Patient reported understanding of care plan and need for follow-up or return to the ER. Lab Data 05/28/23 14:47 05/28/23 14:47 Labs/Radiology: Laboratory Results WBC 10.94 10^3/uL (3.29-11.43) 05/28/23 14:47 RBC 4.10 10^6/uL (3.85-5.65) 05/28/23 14:47 Hgb 12.50 g/dL (11.27-16.99) 05/28/23 14:47 Hct 37.6 % (36-47) 05/28/23 14:47 MCV 91.7 fl (85-98) 05/28/23 14:47 MCH 30.5 pg (27-33) 05/28/23 14:47 MCHC 33.2 g/dL (30-55) 05/28/23 14:47 RDW 12.4 % (12.1-15.1) 05/28/23 14:47 Plt Count 263 10^3/cmm (157-399) 05/28/23 14:47 MPV 10.0 fL (7.4-10.4) 05/28/23 14:47 Neut % (Auto) 82.4 % 05/28/23 14:47 Lymph % (Auto) 11.5 % 05/28/23 14:47 [place] % (Auto) 4.8 % 05/28/23 14:47 Eos % (Auto) 0.6 % 05/28/23 14:47 Baso % (Auto) 0.3 % 05/28/23 14:47 Neut # (Auto) 9.01 10^3/uL (1.8-7.7) H 05/28/23 14:47 Lymph # (Auto) 1.3 10^3/uL (0.8-4.8) 05/28/23 14:47 [place] # (Auto) 0.5 10^3/uL (0.2-0.9) 05/28/23 14:47 Eos # (Auto) 0.1 10^3/uL (0.0-0.8) 05/28/23 14:47 Baso # (Auto) 0.0 10^3/uL (0.0-0.1) 05/28/23 14:47 Nucleated RBC % (auto) 0 % 05/28/23 14:47 Nucleated RBCs # 0.0 /100WBC 05/28/23 14:47 Sodium 136 mmol/L (136-145) 05/28/23 14:47 Potassium 4.1 mmol/L (3.5-5.1) 05/28/23 14:47 Chloride 101 mmol/L (98-107) 05/28/23 14:47 Carbon Dioxide 25 mmol/L (22-29) 05/28/23 14:47 Anion Gap 14.1 (5-19) 05/28/23 14:47 BUN 6 mg/dL (6-20) 05/28/23 14:47 Creatinine 0.4 mg/dL (0.5-0.9) L 05/28/23 14:47 GFR Calculation 194.5 mL/min (90-130) H 05/28/23 14:47 Glucose 96 mg/dL (65-115) 05/28/23 14:47 Calculated Osmolality 279 mOsm/kg (285-295) L 05/28/23 14:47 Calcium 9.2 mg/dL (8.5-10.5) 05/28/23 14:47 Total Bilirubin 0.3 mg/dL (0.15-1.2) 05/28/23 14:47 AST 18 U/L (0-32) 05/28/23 14:47 ALT 12 U/L (0-33) 05/28/23 14:47 Alkaline Phosphatase 39 U/L (35-105) 05/28/23 14:47 Total Protein 7.2 g/dL (6.6-8.7) 05/28/23 14:47 Albumin 4.3 g/dL (3.5-5.2) 05/28/23 14:47 Globulin 2.9 g/dL (1.3-4.6) 05/28/23 14:47 Lipase 31 U/L (13-60) 05/28/23 14:47 Urine Color Light yellow (Yellow) 05/28/23 14:40 Urine Appearance Clear (CLEAR) 05/28/23 14:40 Urine pH 8 (5-7) H 05/28/23 14:40 Ur Specific [place] 1.010 (1.005-1.030) 05/28/23 14:40 Urine Protein Neg (Negative) 05/28/23 14:40 Urine Glucose (UA) Norm (Normal) 05/28/23 14:40 Urine Ketones Negative (Negative) 05/28/23 14:40 Urine Blood Neg (Negative) 05/28/23 14:40 Urine Nitrate Negative (Negative) 05/28/23 14:40 Urine Bilirubin Neg (Negative) 05/28/23 14:40 Prot Sulfosalicylic Acd Negative (Negative) 05/28/23 14:40 Urine Urobilinogen Norm mg/dL (Negative) 05/28/23 14:40 Ur Leukocyte Esterase Negative (Negative) 05/28/23 14:40 All radiology interpretation(s) finalized by discharge Discharge Plan Discharge Patient Disposition: Home Clinical Impression: 12 weeks gestation of Abdominal pain Qualifiers: Abdominal location: left lower quadrant Qualified Code(s): R10.32 - Left lower quadrant pain Condition: Stable Prescriptions: No Action PNV [id number] [] 28 mg iron- 800 mcg Tablet 1 tab PO QPM promethazine 25 mg tablet 25 mg PO Q6H PRN (Reason: Nausea And Vomiting) Discharge Orders: Discharge ED (Routine); Ordered 05/28/23 Ordered By: Qamar Nichole Referrals: Dae Cook MD [Primary Care Provider] - Discharge Diet: Usual diet Discharge Activity: Increase activity as tolerated Patient Instructions: Abdominal Pain (ED) Activity Restrictions/Additional Instructions: Monitor for fever, blood in vomit or stool, or vaginal bleeding. Return to ER for any of these concerns. Follow-up with primary care or [facility] in 3 to 5 days for recheck. Coding Level of Care Code ED Concrete Stone Fabricator for Ayad Emanuel
[2023-05-28 15:56] VITALS: BP 119/59; PULSE 57; O2SAT 100
[2023-05-28 16:00] VITALS: PULSE 68; O2SAT 98
[2023-05-28 16:14] VITALS: BP 107/70; PULSE 68; O2SAT 100
== END 2023-05-28 16:15 | disposition home or self-care (01) ==
PROVIDERS: Emergency Medicine; Emergency Provider Nurse Practitioner Family; PCP Family Medicine
DX: O26.891 Other specified pregnancy related conditions, first trimester (principal); R10.32 Left lower quadrant pain; Z3A.12 12 weeks gestation of pregnancy
CPT/HCPCS: 36415; 76801; 80053; 81003; 83690; 84702; 85025; 99284

== ENCOUNTER 2023-08-09 15:30 | Outpatient (CLI) | payer BC, MEDICAID, SELFPAY ==
[2023-08-09 15:26] VITALS: BMI 22.8
[2023-08-09 15:44] VITALS: BP 114/68; PULSE 66
[2023-08-09 15:59] VITALS: BP 118/64; PULSE 66
[2023-08-09 16:09] LABS: Basophils % 0.3 %; Eosinophils # 0.1 10^3/uL (0.0-0.8); Eosinophils % 0.6 %; Hematocrit 34.1 % (36-47); Lymphocytes # 1.3 10^3/uL (0.8-4.8); Lymphocytes % 12.1 %; Mean Corpuscular HGB Conc 33.4 g/dL (30-55); Mean Corpuscular Hemoglobin 30.8 pg (27-33); Mean Corpuscular Volume 92.2 fl (85-98); Mean Platelet Volume 10.4 fL (7.4-10.4); Monocytes # 0.6 10^3/uL (0.2-0.9); Monocytes % 5.8 %; Neutrophils # 8.78 10^3/uL (1.8-7.7); Neutrophils % 80.6 %; Nucleated Red Blood Cells % 0 %; Platelet Count 270 10^3/cmm (157-399); Red Cell Distribution Width 12.5 % (12.1-15.1); White Blood Count 10.88 10^3/uL (3.29-11.43)
[2023-08-09 16:14] VITALS: BP 108/55; PULSE 63
[2023-08-09 16:24] LABS: Bilirubin Urine Neg (Negative); Blood Urine Neg (Negative); Glucose Urine UA Norm (Normal); Ketones Urine Negative (Negative); Leukocyte Esterase Urine Negative (Negative); Nitrate Urine Negative (Negative); Protein Urine Neg (Negative); Squamous Epithelial Cell Urine 0-4 /hpf (0-5); Sulfosalicylic Acid Urine Negative (Negative); Urine Appearance Clear (CLEAR); Urine Color Yellow (Yellow); Urobilinogen Urine Norm (Negative); WBC Urine RARE /hpf (0-5); pH Urine 8 (5-7)
[2023-08-09 16:25] LABS: Add Urine Culture? No; Bacteria Urine 1+ /hpf
[2023-08-09 16:29] VITALS: BP 119/62; PULSE 63
[2023-08-09 16:44] VITALS: BP 115/57; PULSE 63
[2023-08-09 16:48] VITALS: BP 115/57; PULSE 63
== END 2023-08-09 16:50 | disposition home or self-care (01) ==
LOC: OPOB 15:31 → OBGYN 15:32
PROVIDERS: PCP Family Medicine; Visit Provider Family Medicine
DX: O21.9 Vomiting of pregnancy, unspecified (principal); Z3A.00 Weeks of gestation of pregnancy not specified; R10.9 Unspecified abdominal pain
CPT/HCPCS: 36415; 81001; 85025; 99211

== ENCOUNTER 2023-08-20 20:33 | Outpatient (CLI) | payer BC, MEDICAID, SELFPAY ==
[2023-08-20] VITALS (15 sets, daily range): BP systolic 91–109; BP diastolic 50–68; PULSE 60–112; RESP 17; BMI 24.3
[2023-08-20] MEDS: lactated ringers 1,000 ML 999 ML IV (22:03)
[2023-08-20] MEDS: NIFEdipine 10 mg Capsule 30 MG PO (22:07)
[2023-08-20] MEDS: betamethasone susp 6 mg/mL 1 mL (per mL) 12 MG IM (22:17)
== END 2023-08-20 23:25 | disposition home or self-care (01) ==
LOC: OPOB 20:35 → OBGYN 20:37
PROVIDERS: PCP Family Medicine; Visit Provider Family Medicine
DX: O26.899 Other specified pregnancy related conditions, unspecified trimester (principal); Z3A.00 Weeks of gestation of pregnancy not specified; R10.9 Unspecified abdominal pain
CPT/HCPCS: 96372; 99211; J0702; J7120

== ENCOUNTER 2023-08-21 23:26 | Outpatient (CLI) | payer BC, MEDICAID, SELFPAY ==
[2023-08-21 23:20] VITALS: BMI 24.3
[2023-08-21 23:40] VITALS: BP 109/65; PULSE 81
[2023-08-21 23:41] VITALS: TEMP 35.8
[2023-08-22 00:02] VITALS: BP 101/55; PULSE 69
[2023-08-22] MEDS: acetaminophen 500 mg Tablet 1000 MG PO (00:21)
[2023-08-22] MEDS: betamethasone susp 6 mg/mL 1 mL (per mL) 12 MG IM (00:22)
[2023-08-22 00:33] VITALS: BP 101/55; PULSE 69
== END 2023-08-22 00:33 | disposition home or self-care (01) ==
LOC: OPOB 23:26 → OBGYN 23:27
PROVIDERS: PCP Family Medicine; Visit Provider Family Medicine
DX: O26.899 Other specified pregnancy related conditions, unspecified trimester (principal); Z3A.00 Weeks of gestation of pregnancy not specified
CPT/HCPCS: 59025; 96372; 99211; J0702

== ENCOUNTER 2023-09-29 19:30 | Outpatient (CLI) | payer BC, MEDICAID, SELFPAY ==
[2023-09-29] VITALS (15 sets, daily range): BP systolic 100–117; BP diastolic 59–74; PULSE 73–122; BMI 26.9
[2023-09-29] MEDS: terbutaline 1 mg/mL INJ 0.25 MG SUBCUT (20:48)
[2023-09-29 21:26] LABS: Bilirubin Urine Negative (Negative); Blood Urine Negative (Negative); Glucose Urine UA Negative (Normal); Ketones Urine Negative (Negative); Leukocyte Esterase Urine Negative (Negative); Nitrate Urine Negative (Negative); Protein Urine Negative (Negative); Specific Gravity, Urine 1.001 (1.005-1.030); Urine Appearance Clear (CLEAR); Urine Color Yellow (Yellow); Urobilinogen Urine 0.2 mg/dL (Negative)
[2023-09-29] MEDS: lactated ringers 1,000 ML 999 ML IV (21:35)
[2023-09-29 21:40] LABS: Bacteria Urine None Seen /hpf; Hyaline Casts Urine 1.21 /lpf; RBC Urine 0-2 /hpf (0-2); Squamous Epithelial Cell Urine 0-5 /hpf (0-5); WBC Urine 0-5 /hpf (0-5)
--- NOTE | 2023-09-29 22:34 | USR_ITS ---
PROCEDURE INFORMATION: Exam: US , Limited Exam date and time: 09/29/2023 11:29 PM Age: 23 years old Clinical indication: Lmp or gestational age (in weeks): 30w 1d by lmp; Antepartum complications; Other: labor, cerclage 06/08/2023, no vaginal bleeding. ; Patient HX: [id number] S/P cerclage 06/08/2023; Additional info: Cervical length, contractions, previously performed cerclage in place LABS AND CLINICAL REPORTS: Last menstrual period start date: 01/30/2023 Gestational age (Established): 30 w 1 d Estimated due date (Established): 12/07/2023 TECHNIQUE: Imaging protocol: Real-time ultrasound of the maternal uterus with image documentation. Exam focused on the clinical indication. COMPARISON: US OB <= 14 weeks fetus [id number] 05/28/2023 3:15 PM FINDINGS: Gestation: A single intrauterine gestation is seen. heart rate: 134 bpm presentation and position: Cephalic Placenta: Posterior grade 1 placenta without previa. Amniotic fluid (Qualitative): Amniotic fluid volume is normal. Amniotic fluid index: MARCI is 18.09 cm. ANATOMY: midline falx: midline falx is normal. lateral ventricles: lateral ventricles are normal. face: facial profile is normal. upper lip and nose are normal. situs: situs is normal. heart four-chamber view, heart size and position: heart four-chamber view, size, and position are normal. kidneys: kidneys are normal. stomach: stomach is normal. urinary bladder: bladder is normal. spine: No visualized abnormalities of spine. Umbilical cord and insertion: umbilical cord insertion site into the abdomen is normal. 3-vessel umbilical cord lower limbs: legs and feet: No visualized abnormalities of legs/feet. upper limbs: arms and hands: No visualized abnormalities of arms/hands. BIOMETRY: Gestational age (AUA): 30 w 5 d Estimated due date (AUA): 12/03/2023 Estimated weight: 1581.82 g. (49.2 percentile) EFW by AC, BPD, FL, HC, [place] 1985 Biparietal diameter (BPD): 7.63 cm. EGA (BPD) is 30 w 4 d. 52.9 % percentile Head circumference (HC): 28.54 cm. EGA (HC) is 31 w 2 d. 49 % percentile Abdominal circumference (AC): 26.02 cm. EGA (AC) is 30 w 1 d. 45.8 % percentile Femur length (FL): 5.88 cm. EGA (FL) is 30 w 5 d. 51.1 % percentile HC/AC: 1.1. (Normal range: 0.96 - 1.18) FL/HC: 20.6. (Normal range: 19.27 - 21.33) FL/BPD: 77.06. (Normal range: 71 - 87) FL/AC: 22.6. (Normal range: 20 - 24) MATERNAL: Cervix: Cervical length measures 2.7 cm. US/ OB limited [id number] IMPRESSION: 1. Normal anatomy. 2. Cephalic presentation. 3. Posterior placenta.
[2023-09-29] MEDS: ondansetron 2 mg/ML SDV 2 mL 4 MG IVP (22:46)
[2023-09-29] MEDS: NIFEdipine ER (24 hr) 30 mg Tablet PO (22:54)
[2023-09-29 23:44] LABS: Actim Prom Negative
[2023-09-30 00:32] VITALS: BP 113/61; PULSE 89
[2023-09-30 00:35] VITALS: BP 113/61; PULSE 89; RESP 17
== END 2023-09-30 00:40 | disposition home or self-care (01) ==
LOC: OPOB 19:34 → OBGYN 19:40
PROVIDERS: PCP Family Medicine; Visit Provider Family Medicine
DX: O26.893 Other specified pregnancy related conditions, third trimester (principal); Z3A.30 30 weeks gestation of pregnancy; R10.9 Unspecified abdominal pain
CPT/HCPCS: 59025; 76815; 81001; 84112; 96372; 99211; J2405; J3105; J7120